=== PATIENT | male | born 1995 | race Caucasian/White ===

== ENCOUNTER 2016-10-17 16:33 | Outpatient (CLI) | payer OTHER | END 2016-10-17 20:02 | disposition home or self-care (01) | LOC: SRD 16:33 | PROVIDERS: ATTEND Internal Medicine | DX: I49.8 Other specified cardiac arrhythmias (principal) | CPT/HCPCS: 71020-TC; 93005 ==

== ENCOUNTER 2017-10-11 22:48 | Emergency (ER) | payer OTHER ==
[~2017-10-11] VITALS: Ht 182.9 cm; Wt 77.1 kg
[2017-10-11 22:59] VITALS: BP_SYST 129
[2017-10-12] MEDS ORDERED: LIDOCAINE/EPI 2% 1:100000 20 ML VIAL INJ ONE ×2 (00:15→00:18)
[2017-10-12] MEDS ORDERED: BACITRACIN 1 GM OINT TP ONE ×4 (00:56→01:00)
[2017-10-12 02:05] VITALS: BP_SYST 124
== END 2017-10-12 02:00 | disposition home or self-care (01) ==
LOC: SED 22:48
DX: S01.81XA Laceration without foreign body of other part of head, initial encounter (principal); S16.1XXA Strain of muscle, fascia and tendon at neck level, initial encounter; S80.212A Abrasion, left knee, initial encounter; R03.0 Elevated blood-pressure reading, without diagnosis of hypertension; W19.XXXA Unspecified fall, initial encounter; Y93.89 Activity, other specified; Y92.89 Other specified places as the place of occurrence of the external cause; Y99.8 Other external cause status
CPT/HCPCS: 70450-TC; 72125-TC; 99283; 99284

== ENCOUNTER 2018-02-21 08:48 | Outpatient (CLI) | payer OTHER | END 2018-02-21 19:00 | disposition home or self-care (01) | LOC: SUS 08:48 | PROVIDERS: ATTEND Internal Medicine | DX: R94.5 Abnormal results of liver function studies (principal); R10.9 Unspecified abdominal pain | CPT/HCPCS: 76700-TC ==

== ENCOUNTER 2018-02-28 08:55 | Outpatient (CLI) | payer OTHER ==
[2018-02-28] MEDS ORDERED: IOHEXOL 100 ML IV ONE (09:38)
== END 2018-02-28 19:15 | disposition home or self-care (01) ==
LOC: SCT 08:55
PROVIDERS: ATTEND Internal Medicine
DX: R74.8 Abnormal levels of other serum enzymes (principal)
CPT/HCPCS: 74170; Q9967

== ENCOUNTER 2019-09-16 22:21 | Emergency (ER) | payer OTHER, SELFPAY ==
[~2019-09-16] VITALS: Ht 185.4 cm; Wt 77.1 kg
[2019-09-16 23:08] VITALS: BP_SYST 129
--- NOTE | 2019-09-17 01:00 | NUR ---
Patient to ER bed 1 to gown for evaluation. Side rails up.
--- NOTE | 2019-09-17 01:30 | NUR ---
Dr. Long bedside for Pt eval
--- NOTE | 2019-09-17 02:00 | NUR ---
Pt BIB family to ED C/O possible "pharyngitis" which has been present for the last few days. He states that he has seen exudates on his tonsils. No exposure to anyone with strep and no sick contacts. The patient has been able to eat today. No fevers/chills/or cough
[2019-09-17] MEDS ORDERED: LIDOCAINE VISCOUS 2%, 15 ML UDC MM ONE (02:15)
[2019-09-17] MEDS ORDERED: AMOXICILLIN 500 MG CAPSULE PO ONE (02:15)
--- NOTE | 2019-09-17 03:00 | NUR ---
Meds well tolerated
--- NOTE | 2019-09-17 03:15 | NUR ---
VSS no s/s of acute distress Resting on gurney rails up
--- NOTE | 2019-09-17 03:30 | NUR ---
COVID swab sent to Lab along with paperwork
[2019-09-17 04:10] VITALS: BP_SYST 129
--- NOTE | 2019-09-17 04:10 | NUR ---
Patient given written and verbal discharge instructions and verbalizes understanding. ER MD discussed with patient the results and treatment provided. Patient in stable condition. ID arm band removed. Rx of Cepalcol, Amoxicillin, and Viscus Lidocaine given. Patient educated on pain management and to follow up with PMD. Pain Scale 0/10 Opportunity for questions provided and answered. Medication side effect fact sheet provided.
== END 2019-09-17 04:10 | disposition home or self-care (01) ==
LOC: SED 22:21
DX: J02.9 Acute pharyngitis, unspecified (principal); Z20.828 Contact with and (suspected) exposure to other viral communicable diseases
CPT/HCPCS: 36415; 86403; 87081; 99283; J2001; U0003; C9803-CS

== ENCOUNTER 2021-05-06 11:52 | Outpatient (CLI) | payer MEDICAID, OTHER | END 2021-05-06 21:19 | disposition home or self-care (01) | LOC: SRD 11:52 | PROVIDERS: ATTEND Internal Medicine | DX: J18.9 Pneumonia, unspecified organism (principal) | CPT/HCPCS: 71046-TC ==